=== PATIENT | female | born 1990 | race African-American/Black ===

== ENCOUNTER 2021-11-29 11:21 | Emergency (ER) | payer MEDICAID ==
[~2021-11-29] VITALS: Ht 172.7 cm; Wt 101.0 kg
[2021-11-29 15:28] LABS: CLARITY URINE CLEAR (CLEAR); COLOR URINE YELLOW (YELLOW); KETONES URINE NEGATIVE (NEGATIVE); LEUKOCYTE ESTERASE URINE NEGATIVE (NEGATIVE); NITRITE URINE NEGATIVE (NEGATIVE); OCCULT BLOOD URINE NEGATIVE (NEGATIVE); PROTEIN URINE NEGATIVE (NEGATIVE); SPECIFIC GRAVITY URINE 1.002 (1.005-1.030); UROBILINOGEN URINE 0.2 E.U./dL (0.2-1.0)
[2021-11-29 15:32] LABS: BASOPHILS % 0.6 % (0.0-2.0); EOSINOPHILS % 1.5 % (0.0-5.0); HEMATOCRIT. 38.1 % (36.0-48.0); HEMOGLOBIN. 12.4 g/dL (12.0-16.0); LYMPHOCYTES % 22.8 % (20.0-50.0); MEAN CORPUSCULAR HEMOGLOBIN 27.2 pg (28.0-32.0); MEAN CORPUSCULAR VOLUME 83.3 fL (81.0-99.0); MEAN PLATELET VOLUME 11.1 fl (7.4-10.4); MONOCYTES % 11.8 % (2.0-8.0); NEUTROPHILS % 63.3 % (40.0-76.0); PLATELET 187 x1000/uL (130-400); RED BLOOD CELL COUNT 4.57 mill/uL (4.2-5.4); RED CELL DISTRIBUTION WIDTH 13.8 % (11.6-14.6)
[2021-11-29 15:38] LABS: *AMPHETAMINES SCREEN URINE NEGATIVE (NEGATIVE); *BARBITURATES SCREEN URINE NEGATIVE (NEGATIVE); *BENZODIAZEPINES SCREEN URINE NEGATIVE (NEGATIVE); *COCAINE SCREEN URINE NEGATIVE (NEGATIVE); CANNABINOID URINE SCREEN NEGATIVE (NEGATIVE); METHADONE URINE SCREEN NEGATIVE (NEGATIVE); OPIATES URINE SCREEN NEGATIVE (NEGATIVE); PHENCYCLIDINE URINE SCREEN NEGATIVE (NEGATIVE)
[2021-11-29 15:40] LABS: CHLORIDE 103 mEq/L (98-107)
[2021-11-29] MEDS ORDERED: OLANZAPINE 2.5MG TABLET PO SCH (15:45)
[2021-11-29 15:49] LABS: ETHANOL BLOOD < 10 mg/dL
[2021-11-29] MEDS ORDERED: POTASSIUM CHLORIDE 20MEQ TABLET SR PO ONE (16:30)
[2021-11-30] MEDS: OLANZAPINE 5MG TABLET PO SCH ×2 (11:49→21:36)
[2021-11-30] MEDS ORDERED: LORAZEPAM 2MG/ML CPJ IM ONE (12:30)
[2021-11-30] MEDS ORDERED: NICOTINE 21MG PATCH TD ONE (12:30)
[2021-11-30 22:41] VITALS: BP 130/97
== END 2021-11-30 23:00 ==
LOC: ER 11:21 → EDBD 11:21 → ER 11-30 23:00
DX: F20.0 Paranoid schizophrenia (principal); Z20.822 Contact with and (suspected) exposure to COVID-19
CPT/HCPCS: 36415; 80053; 80305; 80307; 80320; 80329; 81003; 81025; 85025; 96372; 99285; C9803; J2060; U0003; U0005; G0480

== ENCOUNTER 2022-01-20 02:47 | Emergency (ER) | payer MEDICAID, OTHER ==
[~2022-01-20] VITALS: Ht 165.1 cm; Wt 83.7 kg
[2022-01-20 02:52] VITALS: BP 135/77
[2022-01-20] MEDS ORDERED: CLIN-116 MT (12:48)
== END 2022-01-20 05:00 | disposition home or self-care (01) ==
LOC: ER 02:47
DX: Z74.1 Need for assistance with personal care (principal); Z59.48 Other specified lack of adequate food; Z59.00 Homelessness unspecified
CPT/HCPCS: 99281

== ENCOUNTER 2022-01-20 08:49 | Emergency (ER) | payer OTHER ==
[~2022-01-20] VITALS: Ht 167.6 cm; Wt 85.0 kg
[2022-01-20 08:59] VITALS: BP 132/78
[2022-01-20 11:56] LABS: BASOPHILS % 0.8 % (0.0-2.0); EOSINOPHILS % 1.8 % (0.0-5.0); HEMATOCRIT. 35.8 % (36.0-48.0); HEMOGLOBIN. 11.7 g/dL (12.0-16.0); LYMPHOCYTES % 31.7 % (20.0-50.0); MEAN CORPUSCULAR HEMOGLOBIN 27.4 pg (28.0-32.0); MEAN PLATELET VOLUME 9.6 fl (7.4-10.4); MONOCYTES % 12.5 % (2.0-8.0); NEUTROPHILS % 53.2 % (40.0-76.0); PLATELET 266 x1000/uL (130-400); RED BLOOD CELL COUNT 4.26 mill/uL (4.2-5.4); RED CELL DISTRIBUTION WIDTH 14.6 % (11.6-14.6)
[2022-01-20 12:20] LABS: HCG SCREEN NEGATIVE
[2022-01-20 12:21] LABS: CHLORIDE 103 mEq/L (98-107)
[2022-01-20] MEDS ORDERED: CLIN-116 MT (12:48)
== END 2022-01-20 12:59 | disposition home or self-care (01) ==
LOC: ER 08:49
DX: L03.116 Cellulitis of left lower limb (principal); L03.115 Cellulitis of right lower limb
CPT/HCPCS: 36415; 80053; 83880; 84703; 85025; 93970; 99284

== ENCOUNTER 2022-06-11 02:18 | Emergency (ER) | payer OTHER ==
[~2022-06-11] VITALS: Ht 165.1 cm; Wt 82.0 kg
[~2022-06-11 02:18] MED LIST: CLIN-116 MT
[2022-06-11 02:30] VITALS: BP 141/81
== END 2022-06-11 03:00 | disposition left against medical advice (07) ==
LOC: ER 02:18
DX: Z53.21 Procedure and treatment not carried out due to patient leaving prior to being seen by health care provider (principal)

== ENCOUNTER 2022-06-11 05:25 | Emergency (ER) | payer MEDICAID, OTHER ==
[~2022-06-11] VITALS: Ht 167.6 cm; Wt 100.0 kg
[2022-06-11] MEDS ORDERED: LORAZEPAM 1MG TABLET PO ONE (06:45)
[2022-06-11 07:15] LABS: BASOPHILS % 0.5 % (0.0-2.0); CLARITY URINE CLEAR (CLEAR); COLOR URINE YELLOW (YELLOW); EOSINOPHILS % 2.4 % (0.0-5.0); HEMOGLOBIN. 11.9 g/dL (12.0-16.0); KETONES URINE TRACE (NEGATIVE); LEUKOCYTE ESTERASE URINE NEGATIVE (NEGATIVE); LYMPHOCYTES % 39.6 % (20.0-50.0); MEAN CORPUSCULAR HEMOGLOBIN 27.2 pg (28.0-32.0); MEAN CORPUSCULAR VOLUME 82.5 fL (81.0-99.0); MEAN PLATELET VOLUME 9.6 fl (7.4-10.4); MONOCYTES % 9.4 % (2.0-8.0); NEUTROPHILS % 48.1 % (40.0-76.0); NITRITE URINE NEGATIVE (NEGATIVE); OCCULT BLOOD URINE NEGATIVE (NEGATIVE); PH URINE 5.5 (4.5-8.0); PLATELET 230 x1000/uL (130-400); PROTEIN URINE NEGATIVE (NEGATIVE); RED BLOOD CELL COUNT 4.36 mill/uL (4.2-5.4); RED CELL DISTRIBUTION WIDTH 14.5 % (11.6-14.6)
[2022-06-11 07:19] LABS: CHLORIDE 103 mEq/L (98-107)
[2022-06-11 07:27] LABS: ETHANOL BLOOD < 10 mg/dL
[2022-06-11 07:33] LABS: *AMPHETAMINES SCREEN URINE NEGATIVE (NEGATIVE); *BARBITURATES SCREEN URINE NEGATIVE (NEGATIVE); *BENZODIAZEPINES SCREEN URINE NEGATIVE (NEGATIVE); *COCAINE SCREEN URINE NEGATIVE (NEGATIVE); CANNABINOID URINE SCREEN NEGATIVE (NEGATIVE); METHADONE URINE SCREEN NEGATIVE (NEGATIVE); OPIATES URINE SCREEN NEGATIVE (NEGATIVE); PHENCYCLIDINE URINE SCREEN NEGATIVE (NEGATIVE)
[2022-06-12] MEDS ORDERED: LORAZEPAM 2MG/ML CPJ IM ONE (02:30)
[2022-06-12] MEDS ORDERED: HALOPERIDOL LACTATE 5MG/ML VIAL IM ONE (02:30)
[2022-06-12] MEDS: OLANZAPINE 5MG TABLET PO SCH ×2 (15:45→20:40)
[2022-06-12] MEDS ORDERED: LORAZEPAM 1MG TABLET PO ONE (20:30)
[2022-06-13] MEDS: OLANZAPINE 5MG TABLET PO SCH (11:01)
[2022-06-13] MEDS ORDERED: OLANZAPINE 5MG TABLET ODT PO ONE (20:00)
[2022-06-13] MEDS ORDERED: LORAZEPAM 1MG TABLET PO ONE (21:30)
[2022-06-14] MEDS: OLANZAPINE 5MG TABLET PO SCH ×3 (01:56→21:29)
[2022-06-14] MEDS ORDERED: LORAZEPAM 1MG TABLET PO ONE ×2 (15:00→23:00)
[2022-06-15] MEDS: OLANZAPINE 5MG TABLET PO SCH (08:59)
[2022-06-15 09:53] VITALS: BP 139/82
== END 2022-06-15 10:38 ==
LOC: ER 05:25
DX: R45.851 Suicidal ideations (principal); R44.0 Auditory hallucinations; I89.0 Lymphedema, not elsewhere classified; J45.909 Unspecified asthma, uncomplicated; I49.3 Ventricular premature depolarization; Z20.822 Contact with and (suspected) exposure to COVID-19; I10 Essential (primary) hypertension
CPT/HCPCS: 36415; 80053; 80305; 80307; 80320; 80329; 81003; 81025; 85025; 87426; 96372; 99285; C9803; J1630; J2060; G0480

== ENCOUNTER 2022-10-12 04:28 | Emergency (ER) | payer MEDICAID, OTHER ==
[~2022-10-12] VITALS: Ht 165.1 cm; Wt 65.0 kg
[2022-10-12 05:34] LABS: BASOPHILS % 0.6 % (0.0-2.0); EOSINOPHILS % 2.7 % (0.0-5.0); HEMATOCRIT. 33.9 % (36.0-48.0); HEMOGLOBIN. 11.2 g/dL (12.0-16.0); LYMPHOCYTES % 37.3 % (20.0-50.0); MEAN CORPUSCULAR HEMOGLOBIN 27.5 pg (28.0-32.0); MEAN PLATELET VOLUME 9.2 fl (7.4-10.4); MONOCYTES % 10.9 % (2.0-8.0); NEUTROPHILS % 48.5 % (40.0-76.0); PLATELET 254 x1000/uL (130-400); RED BLOOD CELL COUNT 4.08 mill/uL (4.2-5.4); RED CELL DISTRIBUTION WIDTH 14.9 % (11.6-14.6)
[2022-10-12 05:36] LABS: CLARITY URINE CLOUDY (CLEAR); COLOR URINE YELLOW (YELLOW); KETONES URINE 1+ (NEGATIVE); LEUKOCYTE ESTERASE URINE NEGATIVE (NEGATIVE); NITRITE URINE NEGATIVE (NEGATIVE); OCCULT BLOOD URINE NEGATIVE (NEGATIVE); PROTEIN URINE TRACE (NEGATIVE); SPECIFIC GRAVITY URINE 1.026 (1.005-1.030)
[2022-10-12 06:08] LABS: HCG SCREEN NEGATIVE
[2022-10-12 06:59] LABS: *AMPHETAMINES SCREEN URINE NEGATIVE (NEGATIVE); *BARBITURATES SCREEN URINE NEGATIVE (NEGATIVE); *BENZODIAZEPINES SCREEN URINE NEGATIVE (NEGATIVE); *COCAINE SCREEN URINE NEGATIVE (NEGATIVE); CANNABINOID URINE SCREEN NEGATIVE (NEGATIVE); METHADONE URINE SCREEN NEGATIVE (NEGATIVE); OPIATES URINE SCREEN NEGATIVE (NEGATIVE); PHENCYCLIDINE URINE SCREEN NEGATIVE (NEGATIVE)
[2022-10-12 07:06] LABS: CHLORIDE 104 mEq/L (98-107)
[2022-10-12 07:15] LABS: ETHANOL BLOOD < 10 mg/dL
[2022-10-12] MEDS: OLANZAPINE 10MG TABLET PO SCH (20:43)
[2022-10-12] MEDS: NITROFURANTOIN 100MG M/M CAPSULE PO SCH (21:00)
[2022-10-12] MEDS ORDERED: ACETAMINOPHEN 325MG TABLET PO ONE (23:30)
[2022-10-13] MEDS: NITROFURANTOIN 100MG M/M CAPSULE PO SCH ×2 (10:51→20:30)
[2022-10-13] MEDS ORDERED: LORAZEPAM 1MG TABLET PO ONE (12:00)
[2022-10-13 19:41] VITALS: BP 125/85
[2022-10-13] MEDS: OLANZAPINE 10MG TABLET PO SCH (20:30)
[2022-10-13] MEDS ORDERED: ACETAMINOPHEN 325MG TABLET PO ONE (20:45)
== END 2022-10-13 21:20 ==
LOC: ER 04:28
DX: R45.851 Suicidal ideations (principal); J45.909 Unspecified asthma, uncomplicated; Z88.0 Allergy status to penicillin; Z86.59 Personal history of other mental and behavioral disorders; Z20.822 Contact with and (suspected) exposure to COVID-19
CPT/HCPCS: 36415; 80053; 80305; 80320; 81003; 84703; 85025; 87426; 99285; C9803; G0480

== ENCOUNTER 2022-12-28 01:54 | Emergency (ER) | payer OTHER ==
[~2022-12-28] VITALS: Ht 165.1 cm; Wt 89.0 kg
[2022-12-28 02:25] VITALS: O2SAT 100
[2022-12-28 04:02] LABS: BASOPHILS % 0.6 % (0.0-2.0); EOSINOPHILS % 2.6 % (0.0-5.0); HEMATOCRIT. 34.2 % (36.0-48.0); HEMOGLOBIN. 11.2 g/dL (12.0-16.0); LYMPHOCYTES % 45.9 % (20.0-50.0); MEAN CORPUSCULAR VOLUME 82.2 fL (81.0-99.0); MEAN PLATELET VOLUME 9.8 fl (7.4-10.4); MONOCYTES % 10.2 % (2.0-8.0); NEUTROPHILS % 40.7 % (40.0-76.0); PLATELET 209 x1000/uL (130-400); RED BLOOD CELL COUNT 4.16 mill/uL (4.2-5.4); RED CELL DISTRIBUTION WIDTH 14.3 % (11.6-14.6)
[2022-12-28 04:16] LABS: CHLORIDE 106 mEq/L (98-107)
[2022-12-28 04:23] LABS: ETHANOL BLOOD < 10 mg/dL (-10)
[2022-12-28 04:39] LABS: HCG SCREEN NEGATIVE
[2022-12-28 21:05] LABS: *AMPHETAMINES SCREEN URINE NEGATIVE (NEGATIVE); *BARBITURATES SCREEN URINE NEGATIVE (NEGATIVE); *BENZODIAZEPINES SCREEN URINE NEGATIVE (NEGATIVE); *COCAINE SCREEN URINE NEGATIVE (NEGATIVE); CANNABINOID URINE SCREEN NEGATIVE (NEGATIVE); METHADONE URINE SCREEN NEGATIVE (NEGATIVE); OPIATES URINE SCREEN NEGATIVE (NEGATIVE); PHENCYCLIDINE URINE SCREEN NEGATIVE (NEGATIVE)
[2022-12-28] MEDS ORDERED: ACETAMINOPHEN 325MG TABLET PO ONE (21:15)
[2022-12-29] MEDS ORDERED: LORAZEPAM 2MG/ML CPJ IM STA (10:14)
[2022-12-29] MEDS ORDERED: OLANZAPINE 10 MG/VIAL IM ONE (10:15)
[2022-12-29 12:08] VITALS: BP 101/45; PULSE 76; RESP 18; TEMP 97.8
[2022-12-29] MEDS ORDERED: OLANZAPINE 5MG TABLET ODT PO SCH (13:00)
== END 2022-12-29 15:20 | disposition home or self-care (01) ==
LOC: ER 01:54
DX: R51.9 Headache, unspecified (principal); R45.851 Suicidal ideations; J45.909 Unspecified asthma, uncomplicated; Z88.0 Allergy status to penicillin; Z86.59 Personal history of other mental and behavioral disorders; Z98.890 Other specified postprocedural states
CPT/HCPCS: 80053; 80305; 80307; 80329; 80320; 84703; 85025; 36415; 99285; 70450; 96372; J3490; J2060; Z7610; G0480

== ENCOUNTER 2025-01-30 18:10 | Emergency (ER) | payer MEDICAID, OTHER ==
[~2025-01-30] VITALS: Ht 170.2 cm; Wt 90.0 kg
[2025-01-30 18:12] VITALS: O2SAT 100
[2025-01-30 19:00] LABS: *AMPHETAMINES SCREEN URINE NEGATIVE (NEGATIVE); *BARBITURATES SCREEN URINE NEGATIVE (NEGATIVE); *BENZODIAZEPINES SCREEN URINE NEGATIVE (NEGATIVE); *COCAINE SCREEN URINE NEGATIVE (NEGATIVE)
[2025-01-30 19:01] LABS: CANNABINOID URINE SCREEN NEGATIVE (NEGATIVE); ECSTASY MDMA SCREEN URINE NEGATIVE (NEGATIVE); METHADONE URINE SCREEN NEGATIVE (NEGATIVE); OPIATES URINE SCREEN NEGATIVE (NEGATIVE); PHENCYCLIDINE URINE SCREEN NEGATIVE (NEGATIVE)
[2025-01-30 21:22] LABS: BASOPHILS % 0.4 % (0.0-2.0); EOSINOPHILS % 2.5 % (0.0-5.0); HEMATOCRIT. 36.1 % (36.0-48.0); HEMOGLOBIN. 11.6 g/dL (12.0-16.0); LYMPHOCYTES % 42.8 % (20.0-50.0); MEAN PLATELET VOLUME 10.0 fl (7.4-10.4); MONOCYTES % 8.5 % (2.0-8.0); NEUTROPHILS % 45.8 % (40.0-76.0); PLATELET 191 x1000/uL (130-400); RED BLOOD CELL COUNT 4.34 mill/uL (4.2-5.4); RED CELL DISTRIBUTION WIDTH 16.6 % (11.6-14.6)
[2025-01-30 21:33] LABS: CREATININE 1.1 mg/dL (0.6-1.0); ETHANOL BLOOD < 10 mg/dL (<10); UREA NITROGEN BLOOD 8 mg/dL (9-23)
[2025-01-31 11:19] VITALS: BP 138/94; PULSE 87; RESP 16; TEMP 36.8; O2SAT 99
== END 2025-01-31 11:32 | disposition home or self-care (01) ==
LOC: ER 18:10
DX: R44.0 Auditory hallucinations (principal); J45.909 Unspecified asthma, uncomplicated; I49.9 Cardiac arrhythmia, unspecified; F31.9 Bipolar disorder, unspecified; Z88.0 Allergy status to penicillin; Z20.822 Contact with and (suspected) exposure to COVID-19; Z86.59 Personal history of other mental and behavioral disorders
CPT/HCPCS: 36415; 80048; 80305; 80307; 80320; 80329; 85025; 87426; 93005; 99285; G0480